=== PATIENT | male | born 1955 | race Hispanic/Latino ===

== ENCOUNTER → 2019-06-07 | Outpatient (CLI) | payer MEDICARE, OTHER | LOC: LAB.O 09:38 | PROVIDERS: ATTEND Internal Medicine Hepatology | DX: K74.60 Unspecified cirrhosis of liver (principal); E87.70 Fluid overload, unspecified ==

== ENCOUNTER → 2019-08-04 | Outpatient (CLI) | payer MEDICARE, OTHER ==
--- NOTE | 2019-08-05 09:19 | US ---
EXAM DESCRIPTION: Paracentesis: Ultrasound CLINICAL HISTORY: OTHER ASCITES COMPARISON: None. TECHNIQUE: The procedure was performed by Dr. Donahue; explained to the patient with risks and benefits. Patient gave verbal and written consent. Patient supine on scanning table. Krishna written on abdominal skin for placement of catheter, based on ultrasound scan, at the left lower quadrant of abdomen 10 cm from umbilicus. Sterile preparation and draping. Utilizing, sterile technique, subcutaneous and deep 1% lidocaine anesthetic at the site for insertion. Scalpel used for skin opening. The 8 Fr catheter over 18 gauge introducer needle paracentesis system with self-sealing valve and stopcock, was introduced through the opening into the abdominal cavity. With attached 5 cc syringe, straw-colored fluid was aspirated when the catheter was in the cavity. The syringe and needle were withdrawn as the catheter was advanced into the cavity. Proximal extension set tube attached to stopcock, and 18 gauge needle on the distal tube inserted into 1 - L vacuum bottle. Stopcock was opened for drainage. 6 - 1 L bottles were utilized. The patient tolerated the procedure well with no immediate complications. No specimens were collected for laboratory evaluation. Patient left the department ambulatory in good condition. FINDINGS: Large fluid collections are seen in every quadrant of the abdomen prior to the procedure. Images during the procedure shows the Echogenic tip of the catheter within the fluid collection. IMPRESSION: Successful, ultrasound-guided, paracentesis of over 6 L of fluid. Electronically signed by: Krishna Donahue MD 08/05/2019 9:17 AM WASTE WATER PLANT OPERATOR
== END | disposition home or self-care (01) ==
LOC: US 12:37
PROVIDERS: ATTEND Nurse Practitioner Family
DX: R18.8 Other ascites (principal)

== ENCOUNTER → 2019-09-16 | Outpatient (CLI) | payer MEDICARE, OTHER | LOC: LAB.O 10:14 | PROVIDERS: ATTEND Nurse Practitioner Family | DX: K74.69 Other cirrhosis of liver (principal) ==

== ENCOUNTER → 2019-09-21 | Outpatient (CLI) | payer MEDICARE, OTHER ==
--- NOTE | 2019-09-21 15:22 | US ---
EXAM DESCRIPTION: Paracentesis: Ultrasound CLINICAL HISTORY: ASCITES COMPARISON: Ultrasound-guided paracentesis July. TECHNIQUE: The procedure was explained to the patient with risks and benefits. Patient gave verbal and written consent. Patient supine on scanning table. Krishna written on right lower quadrant abdominal skin for placement of catheter, based on ultrasound scan, at the right lower quadrant of abdomen 15 cm from umbilicus. Sterile preparation and draping. Utilizing, sterile technique, subcutaneous and deep lidocaine 1% anesthetic at the site for insertion. Scalpel used for skin opening. The 8 Fr catheter over 18 gauge introducer needle paracentesis system with self-sealing valve and stopcock, was introduced through the opening into the abdominal cavity. With attached 5 cc syringe, straw-colored fluid was aspirated when the catheter was in the cavity. The syringe and needle were withdrawn as the catheter was advanced into the cavity. Proximal extension set tube attached to stopcock, and 18 gauge needle on the distal tube inserted into 1 - L vacuum bottle. Stopcock was opened for drainage. 6- 1 L bottles were utilized. Consistent color of ascites in all bottles. The patient tolerated the procedure well with no immediate complications. No specimens were collected for laboratory evaluation. FINDINGS: Approximately 50% of reduction of fluid in all 4 quadrants of the abdomen and after paracentesis. IMPRESSION: Successful, paracentesis of the abdomen following ultrasound localization for access site for the paracentesis system. 6 L of fluid was removed. Electronically signed by: Krishna Donahue MD 09/21/2019 3:20 PM LINK TRAINER MECHANIC
== END ==
LOC: US 13:00
PROVIDERS: ATTEND Nurse Practitioner Family
DX: R18.8 Other ascites (principal)

== ENCOUNTER → 2019-10-27 | Outpatient (CLI) | payer MEDICARE, OTHER ==
--- NOTE | 2019-10-30 10:37 | US ---
EXAM DESCRIPTION: Abdomen,Complete: Ultrasound. CLINICAL HISTORY: 64 years MaleUNSPECIFIED CIRRHOSIS OF LIVER COMPARISON: None Available. TECHNIQUE: Transabdominal scanning: grayscale and Doppler modes. FINDINGS: Gallbladder: Slightly contracted with thickened echogenic wall measuring 6 mm. Possible sludge. No echogenic stones with acoustic shadowing. Nontender with transducer pressure. Common bile duct: 4.7 mm normal caliber. Liver: Nodular capsule. Long axis right lobe 15.4 cm and surrounded by ascites. Increased heterogeneous echogenicity. Physiologic vascularity. Pancreas: Not well visualized.. Abdominal aorta: Normal caliber proximal, mid and distal segments not visualized. IVC: visualized; normal caliber. Spleen normal echogenicity; long axis measurement is 13.7 cm. Right kidney: 10 cm long axis with normal cortical thickness and echogenicity. No echogenic stones or hydronephrosis. Left kidney: 9.8 cm long axis with normal cortical thickness and echogenicity. No echogenic stones or hydronephrosis. IMPRESSION: 1. Echogenic fatty liver with nodular capsule suggestive of cirrhosis. Normal vascularity and normal caliber of the ducts. Moderate ascites around the liver and spleen. Pancreas not well visualized. 2. Gallbladder with thickened wall and contracted which may be related to ascites. Possible sludge but no stones. Normal caliber of the common bile duct. 3. Bilateral kidneys and spleen are negative. Proximal abdominal aorta normal caliber with mid and distal segments obscured by intestinal gas. Proximal IVC negative. Electronically signed by: Krishna Donahue MD 10/30/2019 10:36 AM GRAB OPERATOR
== END ==
LOC: US 10:00
PROVIDERS: ATTEND Internal Medicine Gastroenterology
DX: K74.60 Unspecified cirrhosis of liver (principal); K76.0 Fatty (change of) liver, not elsewhere classified; K82.9 Disease of gallbladder, unspecified

== ENCOUNTER → 2019-10-31 | Outpatient (CLI) | payer MEDICARE, OTHER | LOC: LAB.O 10:22 | PROVIDERS: ATTEND Nurse Practitioner Family | DX: R18.8 Other ascites (principal) ==

== ENCOUNTER 2020-01-24 09:31 | Outpatient (CLI) | payer MEDICARE, OTHER ==
[2020-01-24] MEDS ORDERED: ALBUMIN IVPB SCH (10:00)
[2020-01-24 11:48] VITALS: BP 106/76; TEMP 97.6; O2SAT 95
--- NOTE | 2020-01-24 14:19 | US ---
EXAM DESCRIPTION: Paracentesis: Ultrasound CLINICAL HISTORY: OTHER CIRRHOSIS OF LIVER COMPARISON: Ultrasound-guided paracentesis November 20. TECHNIQUE: The procedure was performed by Dr. Donahue. Procedure explained to the patient with risks and benefits. Patient gave verbal and written consent. Patient supine on scanning table. Krishna written on abdominal skin for placement of catheter, based on ultrasound scan, at the left lower quadrant of abdomen 10 cm from umbilicus. Sterile preparation and draping. Utilizing, sterile technique, subcutaneous and deep 1% Xylocaine anesthetic at the site for insertion. Scalpel used for skin opening. The 8 Fr catheter over 18 gauge introducer needle paracentesis system with self-sealing valve and stopcock, was introduced through the opening into the abdominal cavity. With attached 5 cc syringe, straw-colored fluid was aspirated when the catheter was in the cavity. The syringe and needle were withdrawn as the catheter was advanced into the cavity. Proximal extension set tube attached to stopcock, and 18 gauge needle on the distal tube inserted into 1 - L vacuum bottle. Stopcock was opened for drainage. 9 1 L bottles were utilized. Approximately 10 L withdrawn. The patient tolerated the procedure well with no immediate complications. No specimens were collected for laboratory evaluation. Patient sent to observation for IV albumin therapy. FINDINGS: Large fluid collections in all 4 quadrants of the abdomen prior to procedure. Decreased fluid in the bilateral lower quadrants postprocedure. IMPRESSION: Successful, ultrasound-guided abdominal paracentesis, performed by Dr. Donahue. Approximately 10 L removed. Patient to receive IV albumin post paracentesis. Please see nursing notes. Electronically signed by: Krishna Donahue MD 01/24/2020 2:17 PM CDT
== END 2020-01-24 11:52 | disposition home or self-care (01) ==
LOC: INFRM 09:31
PROVIDERS: ATTEND Nurse Practitioner Family
DX: K74.69 Other cirrhosis of liver (principal); R18.8 Other ascites
CPT/HCPCS: 49083; 96365; 96366; P9047

== ENCOUNTER → 2020-02-23 | Outpatient (CLI) | payer MEDICARE, OTHER ==
[~2020-02-23] MED LIST: ALBUMIN IVPB SCH
--- NOTE | 2020-02-23 15:27 | US ---
EXAM DESCRIPTION: Paracentesis: Ultrasound CLINICAL HISTORY: OTHER CIRRHOSIS OF LIVER COMPARISON: Previous ultrasound guided paracentesis followed by albumin infusion on January 23. TECHNIQUE: The procedure was performed by Dr. Donahue. Procedure explained to the patient with risks and benefits. Patient gave verbal and written consent. Patient supine on scanning table. Krishna written on abdominal skin for placement of catheter, based on ultrasound scan, at the right lower quadrant of abdomen 10 cm from umbilicus. Sterile preparation and draping. Utilizing, sterile technique, subcutaneous and deep 1% Xylocaine anesthetic at the site for insertion. Scalpel used for skin opening. The 8 Fr catheter over 18 gauge introducer needle paracentesis system with self-sealing valve and stopcock, was introduced through the opening into the abdominal cavity. With attached 5 cc syringe, straw-colored fluid was aspirated when the catheter was in the cavity. The syringe and needle were withdrawn as the catheter was advanced into the cavity. Proximal extension set tube attached to stopcock, and 18 gauge needle on the distal tube inserted into 1 - L vacuum bottle. Stopcock was opened for drainage. 10 1 L bottles were utilized. The patient tolerated the procedure well with no immediate complications. No specimens were collected for laboratory evaluation. FINDINGS: 4 quadrant scanning prior to the procedure showed significant amount of ascites. Scanning of the bilateral lower quadrants after the procedure showed moderate reduction of ascites. IMPRESSION: Successful, ultrasound-guided paracentesis. Approximately 10 mm was removed. No complications. Patient transferred to observation for IV administration of albumin. Electronically signed by: Krishna Donahue MD 02/23/2020 3:25 PM CDT
[2020-02-23 16:35] VITALS: BP 103/85; TEMP 98.3; O2SAT 98
== END ==
LOC: US 10:17
PROVIDERS: ATTEND Nurse Practitioner Family
DX: K74.69 Other cirrhosis of liver (principal)
CPT/HCPCS: 36415; 49083; 80053; 82140; 85025; 96365; 96366; P9047

== ENCOUNTER → 2020-03-12 | Outpatient (CLI) | payer MEDICARE, OTHER | LOC: LAB.O 11:05 | PROVIDERS: ATTEND Internal Medicine Hepatology | DX: K74.69 Other cirrhosis of liver (principal) ==

== ENCOUNTER → 2020-04-10 | Outpatient (CLI) | payer MEDICARE, OTHER | LOC: LAB.O 11:30 | PROVIDERS: ATTEND Internal Medicine Gastroenterology | DX: K74.60 Unspecified cirrhosis of liver (principal) ==

== ENCOUNTER → 2020-05-23 | Outpatient (CLI) | payer MEDICARE, OTHER ==
[~2020-05-23] MED LIST changes: +ALBUMIN IVPB ONE; -ALBUMIN IVPB SCH
[2020-05-23 11:09] VITALS: BP 101/69; TEMP 98; O2SAT 99
== END ==
LOC: INFRM 10:57
PROVIDERS: ATTEND Nurse Practitioner Family
DX: K74.69 Other cirrhosis of liver (principal)
CPT/HCPCS: 80053; 82140; 85025; 96365; 96366; P9047

== ENCOUNTER → 2020-07-03 | Outpatient (CLI) | payer MEDICARE, OTHER ==
[~2020-07-03] MED LIST changes: +ALBUMIN 100 ML IVPB ONE
[2020-07-03 11:35] VITALS: BP 113/76; TEMP 97.7; O2SAT 98
--- NOTE | 2020-07-04 11:06 | US ---
EXAM DESCRIPTION: Paracentesis: Ultrasound CLINICAL HISTORY: OTHER CIRRHOSIS OF LIVER COMPARISON: Ultrasound-guided paracentesis May 23. TECHNIQUE: The procedure was performed by Dr. Donahue; procedure explained to the patient with risks and benefits. Patient gave verbal and written consent. Patient supine on scanning table. Krishna written on abdominal skin for placement of catheter, based on ultrasound scan, at the left lower quadrant of the abdomen, 10 cm from the umbilicus. Sterile preparation and draping. Utilizing, sterile technique, subcutaneous and deep Xylocaine 1% anesthetic at the site for insertion. Scalpel used for skin opening. The 8 Fr catheter over 18 gauge introducer needle paracentesis system with self-sealing valve and stopcock, was introduced through the opening into the abdominal cavity. With attached 5 cc syringe, straw-colored fluid was aspirated when the catheter was in the cavity. The syringe and needle were withdrawn as the catheter was advanced into the cavity. Proximal extension set tube attached to stopcock, and 18 gauge needle on the distal tube inserted into 1 - L vacuum bottle. Stopcock was opened for drainage.. Catheter was adjusted during the procedure with ultrasound guidance when fluid drainage decreased. 8 1 L bottles were utilized. 7850 mL were withdrawn. The patient tolerated the procedure well with no immediate complications. No specimens were collected for laboratory evaluation. The patient was transferred to the nursing floor for albumin of IV infusion after the procedure. FINDINGS: Images taken before the procedure show large fluid collection in all 4 quadrants. Images during procedure show the echogenic drainage catheter. Images obtained after the procedure showed only a minimal amount of fluid in the right upper quadrant. IMPRESSION: Ultrasound-guided paracentesis successful with removal of 7850 mL. Electronically signed by: Krishna Donahue MD 07/04/2020 11:04 AM CDT
== END ==
LOC: INFRM 11:00
PROVIDERS: ATTEND Nurse Practitioner Family
DX: K74.69 Other cirrhosis of liver (principal)
CPT/HCPCS: 49083; 96365; P9047

== ENCOUNTER → 2020-07-31 | Outpatient (CLI) | payer MEDICARE, OTHER ==
[~2020-07-31] MED LIST changes: -ALBUMIN 100 ML IVPB ONE; -ALBUMIN IVPB ONE; +ALBUMIN IVPB SCH
--- NOTE | 2020-07-31 15:01 | US ---
EXAM DESCRIPTION: Paracentesis: Ultrasound CLINICAL HISTORY: CIRRHOSIS OF LIVER COMPARISON: Ultrasound of the abdomen followed by paracentesis July 03. TECHNIQUE: The procedure was performed by Dr. Donahue; explained to the patient with risks and benefits. Patient gave verbal and written consent. Patient supine on scanning table. Krishna written on abdominal skin for placement of catheter, based on ultrasound scan, at the right lower quadrant of the abdomen, 10 cm from the umbilicus. Sterile preparation and draping. Utilizing, sterile technique, subcutaneous and deep 1% Xylocaine anesthetic at the site for insertion. Scalpel used for skin opening. The 8 Fr catheter over 18 gauge introducer needle paracentesis system with self-sealing valve and stopcock, was introduced through the opening into the abdominal cavity. With attached 5 cc syringe, straw-colored fluid was aspirated when the catheter was in the cavity. The syringe and needle were withdrawn as the catheter was advanced into the cavity. Proximal extension set tube attached to stopcock, and 18 gauge needle on the distal tube inserted into 1 - L vacuum bottle. Stopcock was opened for drainage. 8 - 1 L bottles were utilized. The patient tolerated the procedure well with no immediate complications. No specimens were collected for laboratory evaluation. Approximately 9 L of ascites fluid was collected. FINDINGS: Prior to the procedure, scans of the bilateral lower quadrants showed almost equal distribution of ascites. Scans after the procedure showed only one small pocket of fluid in the right lower quadrant. IMPRESSION: Successful, sterile paracentesis of ascites fluid, performed by Dr. Donahue, after ultrasound planning. Patient was transferred to infusion center by wheelchair after the examination for IV infusion of albumin. Electronically signed by: Krishna Donahue MD 07/31/2020 2:59 PM EQUAL EMPLOYMENT OPPORTUNITY OFFICER
== END ==
LOC: INFRM 11:00
PROVIDERS: ATTEND Nurse Practitioner Family
DX: K74.69 Other cirrhosis of liver (principal)
CPT/HCPCS: 49083; 96365; 96366; P9047

== ENCOUNTER → 2020-08-27 | Outpatient (CLI) | payer MEDICARE, OTHER ==
--- NOTE | 2020-08-28 08:51 | US ---
EXAM DESCRIPTION: Abdomen,Complete: Ultrasound. CLINICAL HISTORY: 65 years Male CIRRHOSIS OF LIVER COMPARISON: Paracentesis July 31. Ultrasound abdomen October 27. TECHNIQUE: Transabdominal scanning: grayscale and Doppler modes. FINDINGS: Gallbladder: Contracted. Minimal fluid in Morison's pouch. Thickened wall 3.9 mm Non-tender with transducer pressure. Common bile duct: caliber 4.0 mm within normal limits. Liver: Heterogeneously increased echogenicity; focally increased echogenic lesion in the right lobe subcapsular with maximum diameter 2.9 cm. Not vascular. Contour liver capsule nodular where seen. Moderate fluid around the liver. Intrahepatic biliary ducts normal caliber. Doppler hepatopedal flow and normal caliber portal vein mm. Long axis right lobe 16.3 cm Pancreas: normal size and echogenicity. Duct not seen. Proximal and distal abdominal aorta: Normal caliber. Proximal aorta obscured by intestinal gas.. IVC: visualized and normal caliber. Right kidney: long axis measures 9.3 cm; volume 100.4 mL. Cortical echogenicity is normal. Normal cortical thickness. No echogenic stones; no hydronephrosis. Left kidney: Limited visualization due to patient body habitus. Long axis measures 9.9 cm; volume 180.9 mL. Cortical echogenicity normal. Normal cortical thickness. No echogenic stones; no hydronephrosis. Spleen: Normal. No focal lesions.. 13.1 cm long axis. Other: None. IMPRESSION: 1. Liver upper normal limits in size and ultrasound characteristics consistent with cirrhosis. 2.9 cm echogenic focal lesion subcapsular right lobe could represent large hemangioma, versus other mass. Nonvascular, not complex Not seen on ultrasound from October 27. Dysplastic/regenerationg nodules are isoechoic/hypoechoic. 2. Borderline splenomegaly. Contracted gallbladder with wall thickening. Diffuse ascites in all 4 quadrants. 3. Bilateral kidneys are negative. Normal caliber of the abdominal aorta and IVC. Electronically signed by: Krishna Donahue MD 08/28/2020 8:47 AM MIXING MACHINE TENDER CORK GASKET
== END ==
LOC: US 08:10
PROVIDERS: ATTEND Internal Medicine Hepatology
DX: K74.69 Other cirrhosis of liver (principal); K76.9 Liver disease, unspecified; R16.1 Splenomegaly, not elsewhere classified; E87.79 Other fluid overload; K81.0 Acute cholecystitis; R18.8 Other ascites

== ENCOUNTER → 2020-09-20 | Outpatient (CLI) | payer MEDICARE, OTHER ==
[~2020-09-20] MED LIST changes: +ALBUMIN 100 ML IVPB ONE
--- NOTE | 2020-09-20 16:05 | US ---
EXAM DESCRIPTION: Paracentesis: Ultrasound CLINICAL HISTORY: ASCITES COMPARISON: Paracentesis September 04 TECHNIQUE: The procedure was performed by Dr. Donahue; explained to the patient with risks and benefits. Timeout was performed to confirm patient identification, procedure, and body part involved. Patient gave verbal and written consent. Patient supine on scanning table. Krishna written on abdominal skin for placement of catheter, based on ultrasound scan, at the left lower quadrant of the abdomen, 10 cm from the umbilicus. Sterile preparation and draping. Utilizing, sterile technique, subcutaneous and deep Xylocaine 1% anesthetic at the site for insertion. Scalpel used for skin opening. The 8 Fr catheter over 18 gauge introducer needle paracentesis system with self-sealing valve and stopcock, was introduced through the opening into the abdominal cavity. With attached 5 cc syringe, straw-colored fluid was aspirated when the catheter was in the cavity. The syringe and needle were withdrawn as the catheter was advanced into the cavity. Proximal extension set tube attached to stopcock, and 18 gauge needle on the distal tube inserted into 1 - L vacuum bottle. Stopcock was opened for drainage. 9- 1 L bottles were utilized. A total of 9.1 L was removed. The patient tolerated the procedure well with no immediate complications. No specimens were collected for laboratory evaluation. FINDINGS: Imaging before the procedure shows all 4 quadrants of the abdomen containing abundant ascites with low level echoes. Imaging at the end of the procedure shows only a trace amount of fluid remaining in the left lower quadrant where the catheter was introduced. . IMPRESSION: Successful, paracentesis performed by Dr. Donahue after ultrasound for paracentesis planning. 9.1 L of ascites was removed. Electronically signed by: Krishna Donahue MD 09/20/2020 4:03 PM [facility]
== END ==
LOC: INFRM 08:10
PROVIDERS: ATTEND Nurse Practitioner Family
DX: R18.8 Other ascites (principal); K74.69 Other cirrhosis of liver
CPT/HCPCS: 49083; 96365; P9047

== ENCOUNTER → 2020-11-12 | Outpatient (CLI) | payer MEDICARE, OTHER ==
--- NOTE | 2020-11-12 15:23 | MRI ---
CLINICAL HISTORY PROVIDED: cirrhosis of liver TECHNIQUE: Multiplanar, multisequence MR images of the abdomen. Images were obtained before and after the use of IV contrast. COMPARISON: 08/27/2020 FINDINGS: No true arterial phase sequence provided although the contrast bolus tracker does suggest early arterial enhancement of a right hepatic lobe lesion which demonstrates intratumoral fat and washout. This lesion measures 2.4 x 2.4 cm. Cirrhotic liver morphology. No other focal hepatic lesion identified. The portal vein is patent. Recanalized umbilical vein. Cholelithiasis. The spleen is normal in size. Benign right adrenal adenoma measuring 2.4 cm. The pancreas and left adrenal gland are unremarkable. Symmetric renal parenchymal enhancement. No hydronephrosis. Visualized bowel is unremarkable. Large volume ascites. No adenopathy. Normal caliber abdominal aorta. No focal marrow signal abnormality. IMPRESSION: Right hepatic lobe lesion with imaging features worrisome for HCC measuring 2.4 cm. Cirrhotic liver morphology with sequela of portal hypertension. Electronically signed by: Av Beatty MD 11/12/2020 3:21 PM CLOTH MERCERIZER OPERATOR
== END ==
LOC: MRI 09:18
PROVIDERS: ATTEND Internal Medicine Hepatology
DX: Z01.812 Encounter for preprocedural laboratory examination (principal); K74.69 Other cirrhosis of liver; K76.9 Liver disease, unspecified; K76.6 Portal hypertension